=== PATIENT | female | born 1990 | race African-American/Black ===

== ENCOUNTER 2018-01-24 10:22 | Emergency (ER) | payer SELFPAY ==
[~2018-01-24] VITALS: Ht 165.1 cm; Wt 75.0 kg
[2018-01-24 10:30] VITALS: BP 107/52
== END 2018-01-24 11:29 | disposition home or self-care (01) ==
LOC: ER 10:46
DX: S40.862A Insect bite (nonvenomous) of left upper arm, initial encounter (principal); S40.861A Insect bite (nonvenomous) of right upper arm, initial encounter; W57.XXXA Bitten or stung by nonvenomous insect and other nonvenomous arthropods, initial encounter; Y93.89 Activity, other specified; Y92.89 Other specified places as the place of occurrence of the external cause; Y99.8 Other external cause status
CPT/HCPCS: 99282